=== PATIENT | male | born 1965 | race Caucasian/White ===

== ENCOUNTER 2016-11-11 17:13 | Emergency (ER) | payer OTHER ==
[~2016-11-11] VITALS: Ht 154.9 cm; Wt 57.5 kg
[~2016-11-11 17:13] MED LIST: IBUP-1542 PO
[2016-11-11 17:55] VITALS: Ht 154.9 cm; Wt 57.5 kg
[2016-11-11] MEDS ORDERED: ACET1TAB40 PO (18:34)
[2016-11-11] MEDS ORDERED: NYST15CR16 TOP (18:34)
--- NOTE | 2016-11-11 18:38 | ERD ---
ER Documentation Chief Complaint Date/Time DATE: 11/11/16 TIME: 18:36 Chief Complaint Complains of foot pain x 3 days HPI This 51-year-old male complains of bilateral foot pain worsening over the last week. He has been walking im poor fitting shoes does not have a regular place to live requiring a lot of walking. Denies any fevers, vomiting, shortness breath or chest pain or history of trauma. ROS All systems reviewed and are negative except as per history of present illness. Medications Home Meds Active Scripts Acetaminophen with Codeine (Acetaminophen-Cod #3 Tablet) 1 Each Tablet, 1 TAB PO Q6H Y for PAIN, #10 TAB Prov:GLADYS CARY MD 11/11/16 Nystatin-Triamcinolone* (Nystatin-Triamcinolone* Cream) 15 Gm Cream.gm., 1 APPLIC TOP BID for 7 Days, TUB 30 g okay Prov:GLADYS CARY MD 11/11/16 Ibuprofen* (Motrin*) 600 Mg Tab, 600 MG PO Q6H Y for PAIN AND OR ELEVATED TEMP, #30 TAB Prov:LIZ CARREON MD 05/15/15 Allergies Allergies: Coded Allergies: No Known Allergy (Unverified , 05/15/15) PMhx/Soc History of Surgery: No Anesthesia Reaction: No Hx Neurological Disorder: No Hx Respiratory Disorders: No Hx Cardiac Disorders: No Hx Psychiatric Problems: Yes (ADHD, BIPOLAR) Hx Miscellaneous Medical Probl: No Hx Alcohol Use: No Hx Substance Use: Yes (METH) Hx Tobacco Use: No Physical Exam Vitals Vital Signs Date Time Temp Pulse Resp B/P Pulse Ox O2 Delivery O2 Flow Rate FiO2 11/11/16 17:55 98.3 96 20 136/78 99 Physical Exam Const: [] Alert, [id number]. Head: Atraumatic Eyes: Normal Conjunctiva ENT: Normal External Ears, Nose and Mouth. Neck: Full range of motion..~ No meningismus. Resp: Clear to auscultation bilaterally Cardio: Regular rate and rhythm, no murmurs Abd: Soft, non tender, non distended. Normal bowel sounds Skin: No petechiae or purpura. There is cracking and inflammation of the bottom of the feet diffusely around the toes. There is no significant erythema , warmth, purulent discharge, bony tenderness or deformities. Back: No midline or flank tenderness Ext: No cyanosis, or edema Neur: Awake and alert Psych: Normal Mood and Affect Results 24 hrs Current Medications Medications (Trade) Dose Ordered Sig/Carly Route PRN Reason Start Time Stop Time Status Last Admin Dose Admin Ibuprofen (Motrin) 600 mg ONCE ONCE PO 11/11/16 19:00 11/11/16 19:01 Procedures/MDM Patient presents with bilateral foot pain and signs of chronic irritation and possibly tinea pedis. Signs or symptoms do not suggest cellulitis, osteomyelitis, fracture, dislocation. Treated with nystatin and triamcinolone with a short course of Tylenol 3 for pain. Patient was advised to follow-up with primary doctor and was referred to local [facility] . The patient was stable with no new complaints during the ER course. Clinically, there is no current evidence to suggest meningitis, sepsis, acute abdomen, pneumonia, acute coronary syndrome, pulmonary embolism, or any other emergent condition appearing to require further evaluation or hospitalization. The patient should certainly return for any new or worsening symptoms per the aftercare instructions. They should otherwise follow-up with her primary care doctor for reevaluation this week. Departure Diagnosis: Primary Impression: Foot pain Laterality: bilateral Qualified Code: M79.671 - Pain in both feet Additional Impression: Tinea pedis Laterality: bilateral Qualified Code: B35.3 - Tinea pedis of both feet Condition: Stable Patient Instructions: Dermatitis, Non-Specific, Athlete'S Foot Referrals: COMMUNITY CLINICS YOU HAVE RECEIVED A MEDICAL SCREENING EXAM AND THE RESULTS INDICATE THAT YOU DO NOT HAVE A CONDITION THAT REQUIRES URGENT TREATMENT IN THE EMERGENCY DEPARTMENT. FURTHER EVALUATION AND TREATMENT OF YOUR CONDITION CAN WAIT UNTIL YOU ARE SEEN IN YOUR DOCTORS OFFICE WITHIN THE NEXT 1-2 DAYS. IT IS YOUR RESPONSIBILITY TO MAKE AN APPOINTMENT FOR FOLOW-UP CARE. IF YOU HAVE A PRIMARY DOCTOR --you should call your primary doctor and schedule an appointment IF YOU DO NOT HAVE A PRIMARY DOCTOR YOU CAN CALL OUR PHYSICIAN REFERRAL HOTLINE AT IF YOU CAN NOT AFFORD TO SEE A PHYSICIAN YOU CAN CHOSE FROM THE FOLLOWING [facility] CL[facility] [address] [facility] [address] [facility] [address] [facility] [address] [facility] [address]. [facility]. [address] GLADYS KELLEY MD Nov 11, 2016 18:38
[2016-11-11] MEDS ORDERED: IBUPROFEN 600 MG TAB PO ONE (19:00)
[2016-11-11] MEDS ORDERED: HYDROCODONE/APAP (5/325) TAB PO ONE (19:00)
== END 2016-11-11 18:55 | disposition home or self-care (01) ==
LOC: FTE 17:13
DX: M79.671 Pain in right foot (principal); B35.3 Tinea pedis; M79.672 Pain in left foot
CPT/HCPCS: 99284

== ENCOUNTER 2016-12-26 11:47 | Emergency (ER) | payer OTHER ==
[~2016-12-26] VITALS: Ht 170.2 cm; Wt 54.5 kg
[~2016-12-26 11:47] MED LIST changes: +ACET1TAB40 PO; +NYST15CR16 TOP
[2016-12-26 12:05] VITALS: Ht 170.2 cm; Wt 54.5 kg
[2016-12-26] MEDS ORDERED: HC30CR25 TOP (14:23)
--- NOTE | 2016-12-26 14:30 | ERD ---
ER Documentation Chief Complaint Date/Time DATE: 12/26/16 TIME: 14:27 Chief Complaint pt bib self with c/o right sided toe pain HPI This is a 51-year-old male presents to the ER complaining of a 3 month history of cracked bilateral feet. Patient states that his feet are dry, they crack and become very painful because they bleed. Patient denies any fevers or chills. He has not tried anything for his feet. Patient denies any trauma to his feet or ankles. Patient has a psychiatric history, and is on Zyprexa and Valium. Patient denies any suicidal or homicidal ideations. ROS 12 point review of systems was done, all negative except per HPI. Medications Home Meds Active Scripts Hydrocortisone* Topical (Hydrocortisone* Topical) 2.5%-28.3 Gm Cream..g., 1 APPLIC TOP BID, #1 TUB Prov:JOIE DICK 12/26/16 Acetaminophen with Codeine (Acetaminophen-Cod #3 Tablet) 1 Each Tablet, 1 TAB PO Q6H Y for PAIN, #10 TAB Prov:GLADYS CARY MD 11/11/16 Nystatin-Triamcinolone* (Nystatin-Triamcinolone* Cream) 15 Gm Cream.gm., 1 APPLIC TOP BID for 7 Days, TUB 30 g okay Prov:GLADYS CARY MD 11/11/16 Ibuprofen* (Motrin*) 600 Mg Tab, 600 MG PO Q6H Y for PAIN AND OR ELEVATED TEMP, #30 TAB Prov:LIZ CARREON MD 05/15/15 Allergies Allergies: Coded Allergies: No Known Allergy (Unverified , 12/26/16) PMhx/Soc History of Surgery: No Anesthesia Reaction: No Hx Neurological Disorder: No Hx Respiratory Disorders: No Hx Cardiac Disorders: No Hx Psychiatric Problems: Yes (ADHD, BIPOLAR) Hx Miscellaneous Medical Probl: No Hx Alcohol Use: No Hx Substance Use: Yes (METH) Hx Tobacco Use: No Smoking Status: Never smoker Physical Exam Vitals Vital Signs Date Time Temp Pulse Resp B/P Pulse Ox O2 Delivery O2 Flow Rate FiO2 12/26/16 12:05 98.3 74 16 117/81 100 Physical Exam GENERAL: The patient is well developed and appropriate for usual state of health , in no apparent distress. HEENT: Atraumatic. CHEST: Clear to auscultation bilaterally. There are no rales, wheezes or rhonchi. HEART: Regular rate and rhythm. No murmurs, clicks, rubs or gallops. EXTREMITIES: Equal pulses bilaterally. There is no peripheral clubbing, cyanosis or edema. No focal swelling or erythema. Full range of motion. Grossly neurovascularly intact. NEURO: Alert and oriented. Cranial nerves II through XII are intact. Motor strength in all 4 extremities with 5/5 strength. Sensation grossly intact. Normal speech and gait. SKIN: Very poor bilateral feet hygiene, with tinea pedis and fungus. Both feet are cracked and very dry with some areas of excoriation. Procedures/MDM This is a 51-year-old male presents to the ER complaining of bilateral feet pain. Patient does have chronic bilateral feet with some areas that are excoriated. Patient will be sent with hydrocortisone. Suspicion for cellulitis , abscess, deep space infection is low patient is afebrile and extremely well- appearing. Patient appears to be homeless, does not have very good hygiene of his feet, this likely impairs recovery. He is to follow-up with his primary care doctor within 1-2 days or return to ER sooner if symptoms worsen. My medical decision making shared with the patient he understands and agrees with plan. Departure Diagnosis: Primary Impression: Cracked skin on feet Additional Impression: Drug-seeking behavior Condition: Stable Patient Instructions: Athlete'S Foot Additional Instructions: Call your primary care doctor TOMORROW for an appointment during the next 1-2 days.See the doctor sooner or return here if your condition worsens before your appointment time. JOIE DICK Dec 26, 2016 14:30
--- NOTE | 2016-12-26 14:44 | EN ---
Date/Time of Note Date/Time of Note DATE: 12/26/16 TIME: 14:41 ER Progress Note Upon discharge patient was requesting pain medication I offered patient Ibuprofen however he said he needed [place]. I do not feel that [place] is necessary at this time and patient is exhibiting drug seeking behavior. 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 I reviewed patients old medical records and patient has been to the local ER's 16x's in the last year. JOIE DICK Dec 26, 2016 14:44
== END 2016-12-26 14:41 | disposition home or self-care (01) ==
LOC: FTE 11:47
DX: L98.8 Other specified disorders of the skin and subcutaneous tissue (principal); Z76.5 Malingerer [conscious simulation]
CPT/HCPCS: 99283